=== PATIENT | female | born 1960 | race Caucasian/White ===

== ENCOUNTER → 2021-08-06 | Outpatient (CLI) | payer OTHER ==
[~2021-08-06] MED LIST: CALCIUM 600 +1 EAC8 PO; LODINE CAP 300300 MG PO; NORCO 5-325 TA1 EACH PO; VITAMIN D3 PO
== END ==
LOC: KOH-I 10:49
DX: E04.1 Nontoxic single thyroid nodule (principal)
CPT/HCPCS: 76536